=== PATIENT | male | born 1975 | race Caucasian/White ===

== ENCOUNTER → 2023-04-23 19:08 | Outpatient (CLI) | payer BC, SELFPAY ==
--- NOTE | 2023-04-23 16:15 | DI.RAD_ITS ---
Exam(s) XR SHOULDER LT COMPLETE 2+V EXAM: XR SHOULDER LT COMPLETE 2+V CLINICAL HISTORY: injury, M25.512 pain in left shoulder. TECHNIQUE: 2D digital imaging was performed. COMPARISON: No exams were available for comparison FINDINGS: 3 views No fracture or dislocation but there is a 2 millimeter osteophytic density just above the greater tub erosity of the humeral head indicating calcific tendinitis-bursitis. There does not appear to be a f racture line through the greater tuberosity. There are no obvious degenerative changes in the glenoh umeral joint. Subacromial space is not diminished. Mild degenerative changes in the AC joint. IMPRESSION: Calcific rotator cuff tendinitis. DATA REPOSITORY: RADIATION DOSE DELIVERED:
--- NOTE | 2023-04-23 16:47 | DI.VRAD_ITS ---
PROCEDURE INFORMATION: Exam: XR Left Shoulder Exam date and time: 04/23/2023 4:38 PM Age: 48 years old Clinical indication: Other: Injury, pain in left shoulder TECHNIQUE: Imaging protocol: Radiologic exam of the left shoulder. Views: 2 or more views. COMPARISON: No relevant prior studies available. FINDINGS: Bones/joints: Calcifications associated with distal rotator cuff. No fracture. No dislocation. Soft tissues: Normal. IMPRESSION: No acute findings. Dictated and Authenticated by: Charles Briceno MD. Ordering:CARLOS Lu MD
== END ==
PROVIDERS: Visit Provider Orthopaedic Surgery Sports Medicine
DX: M25.512 Pain in left shoulder (principal); M75.32 Calcific tendinitis of left shoulder
CPT/HCPCS: 73030

== ENCOUNTER → 2023-05-16 01:24 | Outpatient (CLI) | payer BC, SELFPAY ==
--- NOTE | 2023-05-16 07:30 | DI.MRI_ITS ---
Exam(s) MR UPPER JOINT LT WO EXAM: MR UPPER JOINT LT WO CLINICAL HISTORY: left shoulder injury,pain,m25.512. TECHNIQUE: Multiplanar multisequence MRI was performed. COMPARISON: CR,XR XR SHOULDER LT COMPLETE 2+V from 04/23/2023 FINDINGS: BONES: There is no fracture or contusion pattern. JOINTS: Moderate degenerative changes are seen at the acromioclavicular joint. The glenohumeral join t is normal. TENDONS: Supraspinatus: There is a full-thickness tear of the supraspinatus tendon from its insertion site. T here is 7 mm of retraction. Tendinosis of the supraspinatus tendon is present. Infraspinatus: There is tendinosis of the infraspinatus tendon. Subscapularis: There is tendinosis of the subscapularis tendon. There is hyperintense signal seen ne ar the insertion site on the lesser tuberosity consistent with a partial tear. Teres Minor: Unremarkable. Biceps and [place]: Unremarkable. MUSCLES: Moderate fatty atrophy of the teres minor muscle. GLENOID LABRUM: Unremarkable on this noncontrast examination. SOFT TISSUES: Unremarkable. LIGAMENTS: Unremarkable. OTHER: There is fluid seen in the subacromial subdeltoid bursa. IMPRESSION: 1. Full-thickness tear of the supraspinatus tendon with 7 mm of retraction. 2. Partial tear of the subscapularis tendon at its insertion site on the lesser tuberosity. 3. Tendinosis of the subscapularis and infraspinatus muscles. Moderate fatty atrophy of the teres mi nor muscle. 4. Degenerative changes of the acromioclavicular joint. DATA REPOSITORY:
== END ==
PROVIDERS: PCP Neuromusculoskeletal Medicine & OMM; Visit Provider Physician Assistant
DX: M75.122 Complete rotator cuff tear or rupture of left shoulder, not specified as traumatic (principal)
CPT/HCPCS: 73221

== ENCOUNTER 2023-07-04 06:13 | Day surgery (SDC) | payer BC, SELFPAY ==
[2023-07-04] VITALS (9 sets, daily range): BP systolic 127–162; BP diastolic 64–103; PULSE 85–100; RESP 14–19; TEMP 36.1–37; O2SAT 95–98; BMI 35.2
[2023-07-04] MEDS: Lactated Ringers 1,000 ML 80 ML IV (07:00)
--- NOTE | 2023-07-04 07:11 | W.ANESPRE ---
General Info Date of Service Date Performed: 07/04/23 Height: 5 ft 9 in Weight: 108.4 kg Body Mass Index (BMI): 35.2 Surgical Procedure: Operation Date: 07/04/23 08:10 Proposed Procedure Side Surgeon p Shoulder Rotator Cuff Arthroscopic w/Extensive Debridement, Possible Biceps Tenodesis, Subacromial Decompression Left Reddy Cullen MD Meds Allergies and Home Medications Allergies Allergy/AdvReac Type Severity Reaction Status Date / Time No Known Allergies Allergy Verified 07/04/23 06:41 Home Medication Medication Instructions Recorded aspirin 81 mg capsule 81 mg PO DAILY prevent blood clot 07/04/23 7 days #7 caps naproxen 250 mg tablet 250 - 500 mg (1 - 2 x 250 mg) PO 07/04/23 BID PRN moderate pain and swelling #40 tabs oxycodone 5 mg tablet 5 - 10 mg (1 - 2 x 5 mg) PO .q4-6h 07/04/23 PRN severe pain #18 tabs Current Visit Medications: Current Medications Generic Name Dose Route Start Last Admin Trade Name Freq PRN Reason Stop Dose Admin Cefazolin Sodium/Dextrose 2 gm in 50 mls @ 100 mls/hr 07/04/23 06:15 Ancef Duplex IVPB 08/03/23 06:14 PREOP LOKI Ringer's Solution 1,000 mls @ 80 mls/hr 07/04/23 06:30 07/04/23 07:00 IV 08/03/23 06:18 80 mls/hr INFUSION LOKI Administration IV Miscellaneous Supplies 1 each 07/04/23 06:30 Iv Access IV 08/03/23 06:18 DIRECTED LOKI Sodium Chloride 0 ml 07/04/23 06:18 Normal Saline Flush 10 Ml Syr IVP 08/03/23 06:17 PRN PRN Sodium Chloride 0 ml 07/04/23 08:30 Normal Saline Flush 10 Ml Syr IVP 08/03/23 08:29 BID LOKI Sodium Chloride 0 ml 07/04/23 06:18 Normal Saline 10 Ml Vial IJ 08/03/23 06:17 DIRECTED PRN PFSH Active Problems Active Problems: Problem Status Onset Code Traumatic tear of left rotator cuff ~04/22/23 S46.012A Surgical History Surgical History Hx of knee surgery Tobacco Smoking/Tobacco Use Status: Never Alcohol Alcohol Intake: current Alcohol intake frequency: a few times a week Alcohol type: beer Substance Use Substance use: Never Substance use type: does not use Vital Signs and Lab Results Vital Signs Most Recent Vital Signs in EMR: Most Recent Vital Signs Temp Pulse Resp BP Pulse Ox 37 C 96 H 16 162/103 H 98 07/04/23 06:33 07/04/23 06:33 07/04/23 06:33 07/04/23 06:33 07/04/23 06:33 Lab Results Blood Type / Crossmatch: No Data to Display Complete Blood Count: No Data to Display Complete Metabolic Panel: No Data to Display Liver Function Panel: No Data to Display Coagulation Panel: No Data to Display Cardiac Panel: No Data to Display Arterial Blood Gas: No Data to Display Venous Blood Gas: No Data to Display Pancreas Panel: No Data to Display Thyroid Panel: No Data to Display Infectious Disease: No Data to Display Blood Cultures: No Data to Display Toxicology Panel: No Data to Display Anesthesia Assessment and Plan Anesthesia History Personal History: No History of Anesthesia Complications Family History: No Family History of Anesthesia Complications Exercise Tolerance Exercise Tolerance: Metabolic Equivalents>4 Pertinent Negatives Pertinent Negatives: No Symptoms of GERD, No Major Cardiovascular Symptoms or Complaints and No Major Pulmonary Symptoms or Complaints Cardiac & Pulmonary Exam Cardiac Exam: Normal S1/S2 Heart Sounds Pulmonary Exam: Clear Bilateral Breath Sounds Implantable Cardiac Device Does patient have a Pacemaker or an ICD?: No Airway Exam Known Difficult Airway: No Mallampati Class: 2 Mouth Opening: Normal (> 3cm) Thyromental Distance: Greater than 3 cm Neck Range of Motion: Full ROM Neck Circumference: Normal Teeth Condition: Normal Dentition ASA Classification ASA Score: ASA 2 Emergency Case?: No NPO Status NPO Status: NPO Clears >2 hours, Solids >8 hours Anesthesia Plan Resuscitation Status: Full Code Anesthesia Technique: General Anesthesia Airway Planned: Endotracheal Tube Pain Management: Surgeon and patient request nerve block Monitors Used: Standard Monitors
--- NOTE | 2023-07-04 07:18 | PDOC.DSDIS_ITS ---
Date of service: 07/04/23 Time of Service: 10:00 Discharge Plan Disposition Patient Disposition: Home Condition: Stable Discharge Details Attending Provider: Reddy Cullen Primary Care Provider: Deven Ordonez Home Meds and New Rx's Prescriptions: New naproxen 250 mg tablet 250 - 500 mg PO BID PRN (Reason: moderate pain and swelling) Qty: 40 0RF oxycodone 5 mg tablet 5 - 10 mg PO .q4-6h PRN (Reason: severe pain) Qty: 18 0RF aspirin 81 mg capsule 81 mg PO DAILY 7 Days Qty: 7 0RF Discharge Instructions Additional Instructions: Surgery: Left shoulder arthroscopy with rotator cuff repair (large supraspinatus and partial infraspinatus), extensive debridement, and subacromial decompression. Activity: For 6 weeks, you should keep your arm at your side in a neutral position at all times except for physical therapy. Do not try to lift or raise your arm using your own muscles. You should use the sling whenever you are out of the house. You may have to adjust the abduction pillow or remove it for comfort. At home it is best to remove the sling and rest the arm on a pillow at your side or support the operative side with your other hand. You may allow the arm to dangle at your side. A physical therapy prescription will be sent bryce ctronically to begin in about 3 weeks. CONSERVATIVE protocol Prescriptions: Aspirin 81 mg take 1 daily to prevent a blood clot for 7 days Naproxen 250 mg take 1-2 every 12 hours with a meal as needed for moderate pain Oxycodone 5 mg take 1-2 every 4-6 hours as needed for severe pain You may use [id number] Tylenol (acetaminophen) as needed for mild pain. These pain medications may be taken all at once or in different combinations as needed. Also, recommend Colace (docusate) as a stool softener as surgery and pain medicine cause constipation. You may try [id number]-uvlbqaw diphenhydramine (Benadryl) 25-50 mg nightly as a sleep aid Dressings: Remove shoulder bandage after 3 days. Leave the sticky Steri-Strips in place until they fall off or remove them after you shower. Cover the i ncisions with Band-Aids or leave them open to air. You may shower after 5 days. Follow-up: 10-[address] Cullen You may take off the leg compression stockings this evening at home. You may al so leave them on a few days longer if you have a history of leg swelling or edema. Let us know right away if you develop any redness, drainage, fevers, chest pain, or trouble breathing. Do not drink alcohol or drive for at least 24 hours after anesthesia. Please call the office during business hours with any questions or concerns. Discharge Orders Discharge Orders: Discharge Order (Routine); Ordered 07/04/23 Ordered By: Virginia Pickett DS: Diagnosis Discharge Diagnosis (1) Traumatic tear of left rotator cuff: Status: Acute
[2023-07-04] MEDS: ceFAZolin 2 GM/50 ML BAG IVPB (08:16)
--- NOTE | 2023-07-04 08:43 | W.ANESNERVE ---
Nerve Block Single Injection Procedure Date and Time Date Performed: 07/04/23 Procedure Start: 07:30 Location Where Procedure Performed Procedure Location: Day Surgery Unit Reason Performed: Postoperative Analgesia Requesting Provider: Reddy Cullen Timeout Performed Timeout Performed: Yes Monitoring Used ECG, Blood Pressure, SpO2 and See EMR for corresponding vital signs Sterility Sterility: Hand Hygiene, Surgical Cap, Surgical Mask, Sterile Gloves and Chlorhexidine Sedation Given During Procedure Sedation Given (Indicate Dose Given): Versed IV Dose:: 2mg Patient Mental Status Patient Mental Status: Sedate with meaningful communication Nerve Block 1st Nerve Block: Laterality: Left Block Type: Interscalene Ultrasound Image Saved?: Yes Needle / Catheter Used: 100mm SonoPlex II Local Anesthetic Bolus (Indicate Dose Given): Lidocaine used for local infiltration of skin, Injected in 3-5ml increments after negative blood aspiration, Bupivacaine 0.5% Dose:: 10ml and Exparel Dose:: 10ml Additives (Indicate Dose Given): None Ultrasound: Sterile probe cover and gel used Nerve Stimulator: Supplement to Ultrasound use and No twitch or parasthesia noted < 0.5 mA Paresthesia: None Procedure Tolerated: No Complications and Patient tolerated well Procedure Outcome: Successful Performed By: Vijay Joe
[2023-07-04] MEDS: Tranexamic Acid 1,000 MG/10 ML VIAL 1000 MG (08:44)
[2023-07-04] MEDS: Bupivacaine 0.25% Pres-Free 30 ML VIAL (08:45)
[2023-07-04] MEDS: EPINEPHrine 10 MG/10 ML ML (08:46)
--- NOTE | 2023-07-04 10:18 | ROE_ITS ---
Date of service: 07/04/23 Time of Service: 08:30 Operative Note Operative Note DATE OF PROCEDURE: 07/04/23 PRE-OP DIAGNOSIS: Left: 1. Rotator cuff tear POST-OP DIAGNOSIS: same Left: 1. Rotator cuff tear 2. Anterior labral tearing 3. Bursitis PROCEDURE: Left: 1. Rotator cuff repair, CPT# 22612. This involved large repair of the supraspinatus and partial infraspionatus using anchors and sutures to reattach the rotator cuff back to the footprint of the greater tuberosity. 2. Extensive debridement, CPT# 08177. This involved using arthroscopic hand instruments, power instruments, and radiofrequency instruments to debride areas of anterior labral tearing, rotator interval synovitis, partial articular infraspinatus rotator cuff tearing, and chondromalacia about the anterior superior glenoid within the glenohumeral joint anteriorly, superiorly and posteriorly. 3. Subacromial decompression with partial acromioplasty, CPT# 17843. This involved using arthroscopic power instruments and a radiofrequency wand to complete a bursectomy and smooth the undersurface of the acromion. The high school assistant principal was medically required in order to help assist in techniques above, which require positioning the arm, holding the arthroscope, and manipulating multiple instruments and sutures at the same time. This cannot be done without the help of an experienced high school assistant principal. SURGEON: Reddy Cullen REFINERY OPERATOR: Virginia Pickett ANESTHESIA TYPE: Local By Surgeon, General LMA/ETT and Primary Nerve Block Refer to Anesthesia Record ESTIMATED BLOOD LOSS: 10 PATHOLOGY: none sent COMPLICATIONS: None Patient was transported to: PACU Patient's condition: stable Implants: Arthrex: 4.75mm SwiveLocks x 6 Indications: The patient was diagnosed with the above conditions and appropriately indicated for surgical intervention. Please see complete medical record for details. Findings: Exam under anesthesia: Full range of motion, no instability Glenohumeral joint: Significant anterior synovitis, large anterior labral tear and fraying that extended superiorly near the biceps. No biceps tendon tearing or significant injection. No unstable biceps anchor. Unstable cartilage flap anteriorly superiorly at the labral junction with otherwise preserved cartilage. Intact subscapularis. Large retracted supraspinatus tear. Moderate partial articular infraspinatus tearing near the supraspinatus. Subacromial space: Significant bursitis, no significant undersurface acromial bone spur, a large retracted supraspinatus rotator cuff tear and partial leading edge infraspinatus tearing. Moderate retraction and tissue loss central supraspinatus with some remnant tissue on the lateral central rotator cuff footprint. Tear extended toward the bicipital groove partially involving the transverse humeral ligament, but no biceps tendon instability. Moderate tendon excursion over the greater tuberosity with modest tension. Procedure Description: In the operating room, general anesthesia was induced. Bilateral shoulders were examined. The patient was positioned in the beachchair position. All bony prominences were well-padded. Preoperative antibiotics were administered. The shoulder was prepped and draped in the usual sterile fashion. The correct patient, procedure, and side of the procedure were all verified prior to incision. Starting through the posterior portal a standard complete diagnostic arthroscopy was performed of the glenohumeral joint including inspection of the long head of the biceps, anterior and superior labrum, subscapularis tendon, supraspinatus and infraspinatus tendons, and axillary recess. The glenoid and humeral head cartilage as well as the posterior labrum were inspected from an anterior viewing portal. Significant findings and interventions noted above. Of note, there was anterior to superior labral tearing that required careful debridement to a stable smooth margin as well as resection and then debridement of 2 areas of anterior superior cartilage injury on the glenoid. The undersurface rotator cable was intact, there was mild thickness moderate area of partial infraspinatus undersurface tearing there is debrided as well. The biceps tendon was left intact as appeared healthy and the patient did not have any biceps tendon symptoms. Starting through the posterior portal, the arthroscope was directed into the subacromial space. A lateral 50 yard line lateral portal was created. A combination of power instruments and a radiofrequency ablator were used to debride bursitis anteriorly, posteriorly, and laterally as well as expose and smooth bone spurring on the undersurface of the acromion. The coracoacromial ligament was partially released. The bursectomy was completed viewing laterally and working from posteriorly and the rotator cuff was thoroughly inspected with findings noted above. An anterior superior lateral and posterior superior lateral portal was established Claire cannula was inserted. A Claire cannula was inserted laterally. The large supraspinatus and partial infraspinatus tear was carefully inspected and arm positioned for reduction and repair. The greater tuberosity large exposed footprint was debrided of fibrinous tissue and abraded to optimize bone and tendon healing. The tear was almost 3 cm from anterior to posterior. The posterior tissue and infraspinatus was healthier than the central supraspinatus that had some deficient tissue from remnant on the tuberosity as well as the large area of retraction and the crescent tear then continued into the anterior area with significant fibrinous tissue left anterior to the biceps. Various configurations were considered and cuff grasper used as a immobilizer and to confirm repair configuration. Given the young age and a large tear, decision was made to proceed with 3 medial row anchors. A percutaneous central portal was established and 4.75 mm SwiveLock anchor placed preloaded with FiberTape's. The undersized punch was used given the somewhat acute on chronic appearance of the bone and tendon and the medial bone did demonstrate moderate softening. An additional SwiveLock with FiberTape was then placed at the anterior and posterior medial margins of the footprint and tear. The Atavistion suture passer was then used to pass a FiberLink through the medial margin of the tear incorporating appropriate amount of tissue medially, the middle medial row FiberTape's retrieved and then shuttled back up and out the percutaneous portal through the rotator cuff. The FiberLink was then used to similarly shuttle the anterior medial row FiberTape's and then the posterior medial row FiberTape through the appropriate levels of the anterior and posterior rotator cuff tear. A single FiberTape from each medial row anchor was then retrieved laterally and the Claire cannula clear insert used to confirm provisional reduction across the prepared greater tuberosity footprint. The reduction did require modest tension to achieve sufficient tissue coverage. In order to aid reduction and compression and prevent failure, decision was made to add an intermediate row anchor. The repair tapes were brought back out the percutaneous portal. An additional suture tape FiberLink was then shuttled in cinch mode between the anterior and middle and middle and posterior anchors and secured to an intermediate row 4.75 mm swivel lock anchor placed through another percutaneous portal largely reducing the rotator cuff tendon. A tape from each of the 3 medial row anchors was then again retrieved out the lateral cannula, arm rotated and these were secured to an anterior lateral row anchor. The remaining 3 medial row FiberTape's were then retrieved, arm rotated again and these were secured to a posterior lateral row anchor. The repair demonstrated good reduction and compression across the tuberosity. There was better tissue posteriorly and some limited tissue centrally with exposed tuberosity laterally. Repair was stable through testing and range of motion. The shoulder was drained of arthroscopic fluid. All portal sites were copiously irrigated. These incisions were closed using 3-0 Monocryl in a buried fashion and then covered with Mastisol, Steri-Strips, Xeroform, dry gauze, and ABDs. The dressings were covered and secured with Medipore tape. The operative extremity was placed into a sling for immobilization. The patient awoke from anesthesia without complication and was transferred to the recovery room in a stable condition.
--- NOTE | 2023-07-04 11:49 | W.ANESPOSTOP ---
Postoperative Evaluation Date, Time and Location Date Performed: 07/04/23 Time Performed: 11:49 Patient Location: Day Surgery Unit Vital Signs Most Recent Imported Vital Signs: Most Recent Vital Signs Temp Pulse Resp BP Pulse Ox 36.1 C L 97 H 16 149/79 H 95 07/04/23 11:26 07/04/23 11:26 07/04/23 11:26 07/04/23 11:26 07/04/23 11:26 Pain Score Most Recent Pain Score: Most Recent Pain Score Pain Level 0 07/04/23 11:26 Assessment Mental Status: Awake (Alert & Oriented to Patient Baseline) Airway and Respiratory Function: Patent airway with normal (patient baseline) respiratory exam Cardiovascular Function: Hemodynamically Stable Hydration Status: Adequately Hydrated Nausea & Vomiting: No Nausea or Vomiting Pain: Pt. Denies Any Pain Peripheral Nerve Block: Regional nerve block not resolved at time of post operative discharge
== END 2023-07-04 13:43 | disposition home or self-care (01) ==
PROVIDERS: PCP Neuromusculoskeletal Medicine & OMM; Visit Provider Student in an Organized Health Care Education/Training Program
PROC: (CPT 29827; principal; 2023-07-04 08:00)
DX: S46.012A Strain of muscle(s) and tendon(s) of the rotator cuff of left shoulder, initial encounter (principal); X50.0XXA Overexertion from strenuous movement or load, initial encounter
CPT/HCPCS: 29827; 29826; 29823; 76942; C9290; J0665; J0690; J1100; J1885; J2250; J2371; J2405; J2704